=== PATIENT | female | born 1985 | race Caucasian/White ===

== ENCOUNTER 2018-04-12 09:56 | Outpatient (CLI) | payer OTHER ==
[~2018-04-12] VITALS: Ht 157.5 cm; Wt 61.4 kg
[~2018-04-12 09:56] MED LIST: ESCITALOPRAM; LORTAB 5/500 501 TAB PO; PRENATAL1 TA3
[2018-04-12 10:02] VITALS: BP 119/77; PULSE 96; TEMP 98.2
[2018-04-12] MEDS ORDERED: TUMS500 MG (10:28)
[2018-04-12 10:30] VITALS: BP 119/77; PULSE 96; TEMP 98.2
== END 2018-04-12 11:20 | disposition home or self-care (01) ==
LOC: LDRO 09:56 → LDR 10:00 → LDRO 11:20
DX: O42.92 Full-term premature rupture of membranes, unspecified as to length of time between rupture and onset of labor (principal); Z3A.37 37 weeks gestation of pregnancy
CPT/HCPCS: OP

== ENCOUNTER 2018-04-24 11:03 | Inpatient (IN) | payer OTHER ==
[~2018-04-24] VITALS: Ht 156.2 cm; Wt 61.4 kg
[~2018-04-24 11:03] MED LIST changes: +TUMS500 MG
[2018-04-26] VITALS (20 sets, daily range): BP systolic 94–126; BP diastolic 51–80; PULSE 54–106; TEMP 97.4–9738
[2018-04-26 06:06] LABS: BASO % 0.5 % (0.0-2.0); EOS # 0.1 (0.0-0.7); GRAN # 3.4 (1.4-6.5); GRAN % 51.5 % (42.2-75.2); HEMOGLOBIN 12.1 g/dl (12.5-16.0); LYMPH # 2.5 (1.2-3.4); LYMPH % 37.5 % (20.0-51.0); MEAN CELL VOLUME 90 fl (80.0-100.0); MEAN CORPUSCULAR HEMOGLOBIN 31 pg (27.0-31.0); MEAN CORPUSCULAR HGB CONC 34 g/dl (33.0-37.0); MEAN PLATELET VOLUME 11.2 fl (7.4-10.4); MONO # 0.5 (0.1-0.6); PLATELET COUNT 200 K/mm3 (130-400); RED BLOOD COUNT 3.95 M/mm3 (4.10-5.30); REDCELL DISTRIBUTION WIDTH-CV 12.8 % (11.5-14.5)
[2018-04-26 06:12] LABS: HEMATOCRIT 35.7 % (37.0-47.0)
[2018-04-27] VITALS: BP 90/56; PULSE 72; TEMP 98.3
[2018-04-27 08:15] VITALS: BP 89/53; PULSE 72; TEMP 97.4
[2018-04-27 17:30] VITALS: BP 118/74; PULSE 79; TEMP 98.1
[2018-04-27 21:15] VITALS: BP 104/67; PULSE 73; TEMP 98.1
[2018-04-28 07:55] VITALS: BP 120/68; PULSE 76; TEMP 98.4
[2018-04-28] MEDS ORDERED: MOTRIN 800800 MG/TAB PO (08:09)
[2018-04-28] MEDS ORDERED: PERCOCET 325 MG1 TA2 PO (08:09)
== END 2018-04-28 13:30 | disposition home or self-care (01) | DRG 766 ==
LOC: LDR → OB 04-26 05:32
PROVIDERS: Obstetrics & Gynecology
PROC: 10D00Z1 Extraction of Products of Conception, Low, Open Approach (ICD-10-PCS; principal; 2018-04-26)
DX: O34.211 Maternal care for low transverse scar from previous cesarean delivery (principal); Z3A.39 39 weeks gestation of pregnancy; Z37.0 Single live birth
CPT/HCPCS: J0690; J1885; J2175; J2370; J2405; J2590; J3010; J7120